=== PATIENT | female | born 1960 | race Two or more races ===

== ENCOUNTER 2019-11-18 03:07 | Emergency (ER) | payer MEDICAID ==
[~2019-11-18] VITALS: Ht 157.5 cm; Wt 57.0 kg
[2019-11-18] MEDS ORDERED: OXYcodone/APAP 5/325MG TABLET ONE (03:24)
[2019-11-18] MEDS ORDERED: OXYcodone/APAP 5/325MG TABLET PO ONE (03:30)
--- NOTE | 2019-11-18 03:44 | NUR ---
Patient presents to ER c/o left knee pain and lower back pain [place]. Patient denies LOC or head trauma. She states she is unable to bear weight on her knee. Patient is in NAD. Respirations even and unlabored.
--- NOTE | 2019-11-18 03:57 | NUR ---
Assisted patient to bedside commode.
[2019-11-18 05:03] VITALS: BP 120/61
--- NOTE | 2019-11-18 05:39 | NUR ---
Upon discharge of patient, daughter requested tape to hold the ice bag to her leg. Advised patient and family the ice bag had ties to keep the bag attached while laying down. Daughter requested chargemaster analyst. templer head provided patient with coban and continued discharge of patient. All questions and concerns addressed. Patient wheeled out in a wheelchair.
== END 2019-11-18 05:44 | disposition home or self-care (01) ==
LOC: ED 05:20
DX: S82.002A Unspecified fracture of left patella, initial encounter for closed fracture (principal); M54.5 Low back pain; E11.9 Type 2 diabetes mellitus without complications; W18.30XA Fall on same level, unspecified, initial encounter; Y93.89 Activity, other specified; Y92.59 Other trade areas as the place of occurrence of the external cause; Y99.8 Other external cause status
CPT/HCPCS: 72110; 99284